=== PATIENT | male | born 1995 | race Two or more races ===

== ENCOUNTER 2018-05-09 09:00 | Emergency (ER) | payer SELFPAY ==
[2018-05-09 09:19] VITALS: BP 113/69; PULSE 52; TEMP 97.6; BMI 20.3
--- NOTE | 2018-05-09 09:21 | PDOC ---
History of Present Illness - General Chief Complaint: Injury Stated Complaint: RIGHT FINGER LACERATIONS Time Seen by Provider: 05/09/18 09:14 History Source: Patient Exam Limitations: No Limitations - History of Present Illness Initial Comments: 23 yo M no significant PMH, tetanus up to date, presenting with laceration to the R 4th finger. He sustained it while moving a table with a glass top, cut by the glass. No other injuries. It occurred approximately 7 this morning. Past History - Past Medical History Allergies/Adverse Reactions: Allergies Allergy/AdvReac Type Severity Reaction Status Date / Time No Known Allergies Allergy Verified 05/09/18 09:09 Home Medications: Ambulatory Orders NK [No Known Home Medication] 05/09/18 COPD: No - Immunization History TDAP Vaccination: Yes (2015) - Suicide/Smoking/Psychosocial Hx Smoking History: Never smoked Hx Alcohol Use: No Drug/Substance Use Hx: No Substance Use Type: None Review of Systems - Review of Systems Able to Perform ROS?: Yes Comments:: GENERAL/CONSTITUTIONAL: No fever or chills. No weakness. HEAD, EYES, EARS, NOSE AND THROAT: No change in vision. No ear pain or discharge. No sore throat. MUSCULOSKELETAL: No joint or muscle swelling or pain. No neck or back pain. SKIN: No rash. +Laceration. NEUROLOGIC: No headache, vertigo, loss of consciousness, or change in strength/ sensation. ENDOCRINE: No increased thirst. No abnormal weight change. HEMATOLOGIC/LYMPHATIC: No anemia, easy bleeding, or history of blood clots. ALLERGIC/IMMUNOLOGIC: No hives or skin allergy. *Physical Exam - Vital Signs Last Vital Signs Temp Pulse Resp BP Pulse Ox 97.6 F 52 L 16 113/69 100 05/09/18 09:09 05/09/18 09:09 05/09/18 09:09 05/09/18 09:09 05/09/18 09:09 - Physical Exam Comments: GENERAL: Awake, alert, and fully oriented, in no acute distress HEAD: No signs of trauma EYES: PERRLA, EOMI, sclera anicteric, conjunctiva clear ENT: Auricles normal inspection, hearing grossly normal, nares patent, oropharynx clear without exudates. Moist mucosa NECK: Normal ROM, supple, no lymphadenopathy, JVD, or masses LUNGS: Breath sounds equal, clear to auscultation bilaterally. No wheezes, and no crackles HEART: Regular rate and rhythm, normal S1 and S2, no murmurs, rubs or gallops ABDOMEN: Soft, nontender, normoactive bowel sounds. No guarding, no rebound. No masses EXTREMITIES: Normal range of motion, no edema. No clubbing or cyanosis. No cords, erythema, or tenderness NEUROLOGICAL: Cranial nerves II through XII grossly intact. Normal speech, normal gait SKIN: Warm, Dry, normal turgor, no rashes. +C-shaped laceration to R 4th finger , dorsal surface, approximately 2 cm in length. Procedures - Laceration/Wound Repair Right 4th digit Wound Length: to 2.5 cm Wound Explored: clean, no foreign body present Wound's Depth, Shape: irregular Irrigated w/ Saline: Yes Anesthesia: 1% Lidocaine Amount of Anesthetic (ccs): 3 (ring block) Wound Debrided: minimal Wound Repaired With: Sutures Suture Size/Type: 5:0 Number of Sutures: 8 Sterile Dressing Applied: Yes Splint Applied: Yes Right Dorsal 5th digit Wound Length: to 2.5 cm Wound Explored: clean, no foreign body present Wound's Depth, Shape: irregular Irrigated w/ Saline: Yes Anesthesia: 1% Lidocaine Amount of Anesthetic (ccs): 2 Wound Repaired With: Sutures Suture Size/Type: 5:0 Number of Sutures: 4 Sterile Dressing Applied: Yes Splint Applied: Yes *DC/Admit/Observation/Transfer Diagnosis at time of Disposition: Laceration of finger Qualifiers: Encounter type: initial encounter Finger: unspecified finger Damage to nail status: without damage Foreign body presence: without foreign body Laterality: right Qualified Code(s): S61.219A - Laceration without foreign body of unspecified finger without damage to nail, initial encounter - Discharge Dispostion Disposition: HOME Condition at time of disposition: Stable Decision to Admit order: No - Referrals - Patient Instructions Printed Discharge Instructions: DI for Laceration Repair -- Finger Additional Instructions: Keep wound dry for the first 24 hours. After that you can get it wet. If you have redness, drainage of pus, severe pain, or fever, return to the ER, as these are signs of infection. Return between May 18- to have the sutures removed. Mantenga la herida seca rolf las primeras 24 horas. Despus de eso, puedes mojarlo. Si tiene enrojecimiento, drenaje de pus, dolor intenso o fiebre, regrese a la serg de emergencias, ya que estos son signos de infeccin. Regrese entre el 4 y 6 de ranjit para que le quiten las suturas. Print Language: IVORIAN - Post Discharge Activity
== END 2018-05-09 12:02 | disposition home or self-care (01) ==
LOC: FER 09:00
PROC: 0HQFXZZ Repair Right Hand Skin, External Approach (ICD-10-PCS; principal; 2018-05-09)
DX: S61.216A Laceration without foreign body of right little finger without damage to nail, initial encounter (principal); S61.214A Laceration without foreign body of right ring finger without damage to nail, initial encounter; W25.XXXA Contact with sharp glass, initial encounter; Y93.89 Activity, other specified; Y92.89 Other specified places as the place of occurrence of the external cause
CPT/HCPCS: 73130-TC-RT-FY; 99282-25